=== PATIENT | male | born 1990 | race American Indian/Alaskan Native ===

== ENCOUNTER 2017-12-20 12:54 | Emergency (ER) | payer OTHER, BC ==
[2017-12-20] MEDS ORDERED: Ondansetron 4 MG Tab.DIS PO ONE (13:05)
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
--- NOTE | 2017-12-21 07:27 | CT ---
Head Technique: Multiple axial sections through the brain were obtained. Intravenous contrast was not utilized. Comparison: No prior intracranial imaging. Findings: Ventricles along with basal cisterns and sulci over the convexities are within normal limits for the patient's age. No abnormal parenchymal densities are seen. No evidence of intracranial hemorrhage. No midline shift or mass effect is seen. Bone window settings were reviewed which show no acute calvarial abnormality. Visualized sinuses are clear. Impression: 1. No acute intracranial abnormality is identified. Diagnostic code #1 I agree with preliminary report from [facility], finalized at 12/20/17, 2:43 PM Central Time
== END 2017-12-20 14:05 | disposition home or self-care (01) ==
LOC: JD.ED 12:54
DX: S00.531A Contusion of lip, initial encounter (principal); R11.14 Bilious vomiting; V69.9XXA Occupant (driver) (passenger) of heavy transport vehicle injured in unspecified traffic accident, initial encounter
CPT/HCPCS: 70450; 99285; A9270